=== PATIENT | female | born 1980 | race Caucasian/White ===

== ENCOUNTER 2024-05-18 11:40 | Emergency (ER) | payer MEDICAID ==
[~2024-05-18] VITALS: Ht 170.2 cm; Wt 118.0 kg
[2024-05-18] MEDS ORDERED: AMOX-580 PO (12:33)
[2024-05-18 12:42] VITALS: BP 138/86; PULSE 80; RESP 18; TEMP 97.9; O2SAT 99
== END 2024-05-18 12:44 | disposition home or self-care (01) ==
LOC: ER 11:41
DX: H66.92 Otitis media, unspecified, left ear (principal); H72.92 Unspecified perforation of tympanic membrane, left ear; Z88.2 Allergy status to sulfonamides
CPT/HCPCS: 99283